=== PATIENT | female | born 1960 | race Caucasian/White ===

== ENCOUNTER 2024-08-29 06:09 | Day surgery (SDC) | payer OTHER ==
[2024-08-27 16:29] VITALS: BMI 28.1
[~2024-08-29 06:09] MED LIST: EPINEPHrine 0.3 MG in Ophthalmic Irrigation Solution 500 ML IRR SCH
[2024-08-29] MEDS ORDERED: Cyclopentolate 1% Opth Drop 2 ML BOT ONE (06:33)
[2024-08-29] MEDS ORDERED: PHENYLephrine 2.5% Ophth Soln 15 ml Bottle ONE (06:33)
[2024-08-29] MEDS ORDERED: fentaNYL PF 100 MCG/2 ML SYRINGE ONE (07:04)
[2024-08-29] MEDS ORDERED: PROPOFOL 20 ML ONE (07:04)
[2024-08-29] MEDS ORDERED: Midazolam HCl 2 mg/2 ml Vial ONE (07:05)
[2024-08-29] MEDS ORDERED: Lidocaine 1% PF 5 ML VIAL ONE ×2 (07:05→07:40)
[2024-08-29] MEDS ORDERED: Lidocaine 4% PF 5 ML AMP ONE (07:40)
[2024-08-29] MEDS ORDERED: CEFAZOLIN 1 GM VIAL ONE (07:40)
[2024-08-29] MEDS ORDERED: Maxitrol 0.1% Opth Oint 3.5 GM TUBE ONE (07:40)
[2024-08-29] MEDS ORDERED: Bupivacaine 0.75% 10 ML VIAL ONE (07:40)
[2024-08-29] MEDS ORDERED: Ondansetron PF 4 MG/2 ML Vial ONE (07:41)
[2024-08-29] MEDS ORDERED: Dexamethasone 4 mg/ml Vial ONE ×2 (07:49→07:53)
== END 2024-08-29 09:06 | disposition home or self-care (01) ==
LOC: SDC 06:09
PROVIDERS: ATTEND Ophthalmology Retina Specialist
PROC: 08T53ZZ Resection of Left Vitreous, Percutaneous Approach (ICD-10-PCS; principal; 2024-08-29)
DX: H43.312 Vitreous membranes and strands, left eye (principal)
CPT/HCPCS: 67041; J0171; J0690; J1100; J2250; J2405; J2704; J3490